=== PATIENT | male | born 1950 | race Caucasian/White ===

== ENCOUNTER → 2017-09-09 09:24 | Outpatient (CLI) | payer MEDICARE, BC | END | disposition home or self-care (01) | LOC: D.NM 09:24 | DX: R53.81 Other malaise (principal); R53.83 Other fatigue; C61 Malignant neoplasm of prostate ==

== ENCOUNTER → 2019-11-20 08:55 | Outpatient (CLI) | payer MEDICARE, BC ==
--- NOTE | 2019-11-23 08:54 | EC ---
PATIENT:JASPAL SANTOS DATE OF SERVICE: 11/20/19 SEX: M MEDICAL RECORD: [id number] DATE OF : [birth year] LOCATION:D[facility] AGE OF PATIENT: 69 ADMISSION DATE: 11/20/19 REFERRING PHYSICIAN: INTERPRETING PHYSICIAN: DESTINY BYRNE MD ECHOCARDIOGRAM REPORT ECHO CHARGES 4 ECHO COMPLETE Date: 11/20/19 CLINICAL DIAGNOSIS: HTN/HEART MURMUR ECHOCARDIOGRAPHIC MEASUREMENTS (adult normal given) AC root (d.<3.7cm) 3.3 cm LV Septum d (<1.2 cm> 1.7 cm Valve Excursion 1.2 cm LV Septum (systole) 1.9 cm Left Atria (s.<4.0cm> 4.0 cm LVPW d(<1.2cm) 1.7 cm RV (d.<2.3cm) 4.4 cm LVPW (sytole) 2.0 cm LV diastole(<5.6CM) 4.9 cm MV E-F(>70mm/sec) cm LV systole 3.6 cm LVOT Diameter 2.1 cm MV exc.(>10mm) 1.2 cm Est.ejection fraction (50-75%) % DOPPLER: LVIT cm/sec A 60.0 cm/sec E 76.0 cm/sec LA cm/sec RVSP 38 mmHg LVOT 113 cm/sec AOP1/2T m/s Asc. Ao 102 cm/sec RVOT 71 cm/sec RA cm/sec PA 110 cm/sec AV Gradient Peak 4.16 mmHg AV Mean 2.21 mmHg AV Area 3.9 cm MV Gradient Peak 4.31 mmHg MV Mean 1.44 mmHg MV Area cm COMMENTS: Spool Salvager: 2 EMEKA HAN Evening Or Night Nurse Supervisor: 3 Dr. Pérez TAPE# PACS Pericardial Effusion Y DATE OF SERVICE: Adequate 2D, color flow imaging, spectral Doppler, and M-mode. LVH is present. LV internal dimension is normal. Wall motion is normal. EF is greater than or equal to 55%. Aortic valve is tricuspid. No evidence of stenosis by Doppler interrogation. Left atrium is normal at 4 cm. Mitral valve shows no prolapse. Mild MR. Right-sided chambers are grossly normal. Mild TR. NTS:[id number] Voice Confirmation ID: [id number] DOCUMENT ID: [id number] ECHOCARDIOGRAM REPORT [id number] JASPAL SANTOS GREGORY A MD at 0854 CC: [id number] DICTATION DATE: 11/20/19 1330 LEATHER BELT SHAPER: 11/20/19 1858 DEP CLI 11/20/19 [place] [id number] [place] [id number]
== END | disposition home or self-care (01) ==
LOC: D.HCCECHO 08:55
PROVIDERS: ATTEND Internal Medicine Cardiovascular Disease
DX: I10 Essential (primary) hypertension (principal); I20.9 Angina pectoris, unspecified

== ENCOUNTER 2019-12-02 07:07 | Outpatient (CLI) | payer MEDICARE, BC ==
[~2019-12-02] VITALS: Ht 180.3 cm; Wt 124.1 kg
--- NOTE | ~2019-12-02 | HEMODYNAMI ---
PATIENT:JASPAL SANTOS MEDICAL RECORD: [id number] : 48 LOCATION:[facility] ADMISSION DATE: 12/02/19 Generatedon:12/02/20199:25 Patient name: JASPAL SANTOS Patient #: [id number] SSN: [id number] : 1950 Date of study: 12/02/2019 Page: Of Hemodynamic Procedure Report Patient Data Patient Demographics Procedure consent was obtained First Name: JASPAL Gender: Male Last Name: DANIELLE : 1950 Middle Initial: S Age: 69 year(s) Patient #: [id number] Race: SSN: [id number] Additional ID: [id number] Contact details Address: [address] [place] [address] State: [place] [facility] [place]: [address] Past Medical History Allergies Allergen Reaction Date Comments Reported Other allergy 12/02/2019 [facility] Admission Admission Data Admission Date: 12/02/2019 Admission Time: 7:07 Arrival Date: 12/02/2019 Arrival Time: 0:00 Insurance Payor: Medicare Height (in.): 70.87 BSA: 2.41 (m2) Height (cm.): 180 BMI: 38.27 (kg/m2) Weight (lbs.): 273.37 Weight (kg.): 124 Lab Results Lab Result Date: 12/02/2019 Lab Result Time: 0:00 Biochemistry Name Units Result Min Max BUN mg/dl 16 --(---*)-- 7 18 Creatinine mg/dl 1.3 --(---*)-- 0.6 1.3 eGFR ml/min 58 *-(----)-- 90 120 NONAFRICAN CBC Name Units Result Min Max Hematocrit % 38.4 *-(----)-- 42 54 Hemoglobin g/dl 12.8 -*(----)-- 13.5 17.5 Procedure Procedure Types Cath Procedure Diagnostic Procedure LHC [facility] w/Coronaries Sedation Charges Moderate Sedation up to 15 minutes PCI Procedure Coronary Stent Coronary Stent Initial Hemochron ACT Test Procedure Description Procedure Date Procedure Date: 12/02/2019 Procedure Start Time: 9:01 Procedure End Time: 9:23 Procedure Staff Name Function Erik Lorenzo MD Performing Physician Neeta Dent RT Monitor Solange Hanson RN Nurse Kyra Diaz RT Scrub Indication Angina Procedure Data Cath Procedure Fluoroscopy Diagnostic fluoroscopy Total fluoroscopy Time: 4 time: 4 min min Diagnostic fluoroscopy Total fluoroscopy dose: dose: 1466 mGy 1466 mGy Contrast Material Contrast Material Type Amount (ml) Isovue 300 115 Entry Location Entry Primary Successful Side Size Upsize Upsize Entry Closure Succes sful Closure Location (Fr) 1 (Fr) 2 (Fr) Remarks Device Remarks Femoral Right 5 Fr 6 Fr Exoseal artery Short Estimated blood loss: 10 ml Diagnostic catheters Device Type Used For End Catheter Placement MULTIPACK JL 4.0 5Fr Left Coronary catheter Angiography DIAGNOSTIC 5FR Infinity Right Coronary RBL-TG ([id number]) NO COST Angiography SUPPLY MULTIPACK Pigtail 5 Fr LV Angiography catheter Procedure Complications No complications Procedure Medications Medication Administration Route Dosage 0.9% NaCl I.V. 100 ml/hr Oxygen etCO2 Nasal cannula 2 l/min Lidocaine 2% added to field 20 Heparin Flush Bag added to field 2 bags (1000units/500ml NS) Versed I.V. 2 mg Fentanyl I.V. 50 mcg Heparin Bolus I.V. 5000 units Integrilin (Bolus I.V. 11.3 ml 2mg/ml) Integrilin (Bolus wasted 8.7 ml 2mg/ml) Plavix P.O. 600 mg Hemodynamics Rest BSA: 2.41 (m2) O2 Consumption: Estimated: 265.23 (ml/min) O2 Consumption indexed : Estimated:110.05 (ml/min/m) Heart Rate: 55 (bpm) Pressure Samples Time Site Value (mmHg) Purpose Heart Use Rate(bpm) 9:05 LV 113/12,18 Snapshot 49 Gradients Valve Time Site Site Mean SEP/DFP Peak To Heart Use 1 2 (mmHg) (sec/min) Peak Rate (mmHg) (bpm) Aortic 9:06 LV AO 57 Snapshots Pre Cath Intra NCS Post Cath Vital Signs Time Heart Resp SPO2 etCO2 NIBP (mmHg) Rhythm Pain Sedation Rate (ipm) (%) (mmHg) Status Level (bpm) 8:47:20 58 18 97 0 126/76(97) SB 0 (11) 10(A) , No pain 8:51:48 52 24 98 32.9 137/78(117) SB 0 (11) 10(A) , No pain 8:56:13 44 19 98 36.7 119/68(93) SB 0 (11) 10(A) , No pain 9:00:39 40 18 97 36.7 112/67(91) SB 0 (11) 10(A) , No pain 9:05:01 57 18 98 36.7 119/67(96) SB 0 (11) 9(A) , No pain 9:09:25 52 18 97 37.4 125/73(102) SB 0 (11) 9(A) , No pain 9:13:52 66 16 97 36.7 121/67(96) SB 0 (11) 10(A) , No pain 9:18:14 67 15 98 35.2 130/86(115) SB 0 (11) 10(A) , No pain 9:22:36 59 17 99 32.2 125/82(106) SB 0 (11) 10(A) , No pain Medications Time Medication Route Dose Verified Delivered Reason Notes Effectiveness by by 8:45:25 0.9% NaCl I.V. 100 Erik Solange used for ml/hr [facility] Valentin procedure MD ADDISON 8:45:32 Oxygen etCO2 2 Erik Solange used for Nasal l/min [facility] procedure cannula MD ADDISON 8:45:36 Lidocaine 2% added 20ml Erik Valencia for local to vial [facility] anesthetic field MD MCCLENDON 8:45:42 Heparin Flush added 2 Erik Erik used for Bag to bags [facility] procedure (1000units/500ml field MD MCCLENDON NS) 8:59:47 Versed I.V. 2 mg Erik Solange for sedation [facility] Hanson MD, RN 8:59:59 Fentanyl I.V. 50 Erik Solange for sedation mcg [facility] Hanson MD, RN 9:10:30 Heparin Bolus I.V. 5000 Erik Solange for verifi ed units [facility] anticoagulation with Dr. MD ADDISON [place] 9:10:43 Integrilin I.V. 11.3 Erik Solange for (Bolus 2mg/ml) ml [facility] Hanson antiplatelet RN therapy 9:10:54 Integrilin wasted 8.7 Erik Narvaez for (Bolus 2mg/ml) ml [facility] Hanson antiplatelet RN therapy 9:11:02 Plavix P.O. 600 Erik Narvaez for mg [facility] Hanson antiplatelet RN therapy Procedure Log Time Note 8:36:09 Informed consent obtained and on chart 8:37:36 Indication : Angina 8:37:44 Procedure Status Elective Heart Cath (OP). 8:37:47 Kyra Diaz RT(R) sent for patient. Start room use. 8:37:49 Time tracking: Regular hours (M-F 7:00 - 5:00) 8:37:57 Plan of Care:Hemodynamics will remain stable., Cardiac rhythm will remain stable., Comfort level will be maintained., Respiratory function will remain adequate., Patient/ family verbilizes understanding of procedure., Procedure tolerated without complication., Recovers from procedure without complications.. 8:38:07 ACC Patient presents with Stable Angina CCS Anginal Class 1--Ordinary physical activity does not cause angina, angina occurs with strenuos, rapid, or prolonged activity.. 8:38:34 Patient allergic to Other allergyNKDA 8:38:49 Arrival Date: 12/02/2019 12:00:00 AM 8:38:55 Patient Height : 70.87 inches 8:39:00 Patient Weight : 273.37 lbs 8:39:07 Insurance Payor : Medicare 8:40:46 Lab Result : BUN 16 mg/dl 8:40:46 Lab Result : Creatinine 1.3 mg/dl 8:40:46 Lab Result : eGFR NONAFRICAN 58 ml/min 8:40:46 Lab Result : Hematocrit 38.4 % 8:40:46 Lab Result : Hemoglobin 12.8 g/dl 8:41:01 Patient received from Pre/Post Procedure Room to CCL 1 Alert and oriented. Tansferred to table in Supine position. 8:41:03 Warm blankets applied, and blossom hugger turned on for patient comfort. 8:41:04 Correct patient and procedure confirmed by team. 8:41:04 ECG and BP/O2 sat monitors applied to patient. 8:45:25 0.9% NaCl 100 ml/hr I.V. was administered by Solange Hanson RN; used for procedure; Verbal order read back and verified. 8:45:32 Oxygen 2 l/min etCO2 Nasal cannula was administered by Solange Hanson RN; used for procedure; Verbal order read back and verified. 8:45:36 Lidocaine 2% 20ml vial added to field was administered by Erik Lorenzo MD; for local anesthetic; Verbal order read back and verified. 8:45:42 Heparin Flush Bag (1000units/500ml NS) 2 bags added to field was administered by Erik Lorenzo MD; used for procedure; Verbal order read back and verified. 8:46:01 Vital chart was started 8:46:36 Baseline sample Acquired. 8:46:58 Baseline sample Acquired. 8:47:11 Baseline sample Acquired. 8:50:11 Stress Test: yes; abnormal INFERIOR AND APICAL 8:50:19 Lab results completed and on chart. 8:51:09 Baseline sample Acquired. 8:51:13 Rhythm: sinus rhythm 8:51:16 Full Disclosure recording started 8:51:18 8:51:26 H&P Date Dictated: 12/02/2019 H&P Addendum completed by physician on day of procedure. (MUST COMPLETE FOR ALL OUTPATIENTS), New H&P dictated by physician.. 8:51:28 Pre-procedure instructions explained to patient. 8:51:29 Pre-op teaching completed and patient verbalized understanding. 8:51:32 Family in patients room. 8:51:35 Patient NPO since Midnight. 8:51:39 Is the patient allergic to Iodine/contrast media? No. 8:51:45 Is patient on blood thinner?No 8:51:49 Patient diabetic? No. 8:51:52 ----Pre-sedation anethsthesia assessment.---- 8:51:55 Previous problem with sedation/anesthesia? No ? 8:51:57 Snore? Yes 8:51:59 Sleep apnea? No 8:52:01 Deviated septum? No 8:57:51 Opens mouth fully? Yes 8:57:54 Sticks out tongue? Yes 8:57:59 Airway obstruction? No ? 8:58:02 Dentures? No ? 8:58:08 Pre procedure: right dorsailis pedis pulse 2+ Normal; easily identifiable; not easily obliterated 8:58:23 IV patent on arrival in right forearm with 0.9% NaCl at KVO. 8:58:35 Right groin area was prepped with chlora-prep and draped in sterile fashion 8:58:36 Alarms reviewed by R. N. 8:58:37 Sharps counted by scrub and verified by R.N. 8:58:41 Physician arrived 8:58:42 --------ALL STOP TIME OUT------ 8:58:44 Final Timeout: patient, procedure, and site verified with staff and physician. All members of the team are in agreement. 8:58:46 Right groin site verified by team. 8:58:53 Fire Safety Assessment: A--An alcohol-based skin anteseptic being used preoperatively., C--Open oxygen or nitrous oxide is being used., D--An ESU, laser, or fiber-optic light is being used. 8:58:58 Physical assessment completed. ASA score P 2 - A patient with mild systemic disease as per Erik Lorenzo MD. 8:59:05 3a) 45-59 Moderately reduced kidney function. 8:59:13 Maximum allowable contrast dose (3.7 X eGFR X 0.75)161 ml. 8:59:19 Sedation plan: IV Moderate Sedation Medication:Versed, Fentanyl 8:59:24 Use device set Femoral Dx 8:59:26 ACIST Syringe (98312) opened to sterile field. 8:59:27 Bag Decanter () opened to sterile field. 8:59:28 Medline Cath Pack ([id number]) opened to sterile field. 8:59:29 ACIST Hand Control (69028) opened to sterile field. 8:59:30 ACIST Manifold (42140) opened to sterile field. 8:59:31 DIAGNOSTIC Multipack 5Fr catheter set (FE8319) opened to sterile field. 8:59:32 Tegaderm 4 x 4 (1626W) opened to sterile field. 8:59:33 SHEATH 5FR [place] (GNE930) opened to sterile field. 8:59:34 EMERALD Guide Wire (502-790) opened to sterile field. 8:59:47 Versed 2 mg I.V. was administered by Solange Hanson RN; for sedation; Verbal order read back and verified. 8:59:59 Fentanyl 50 mcg I.V. was administered by Solange Hanson RN; for sedation; Verbal order read back and verified. 9:00:00 Zero performed for pressure channel P1 9:00:39 Procedure started. 9:01:11 Local anesthetic to right femoral artery with Lidocaine 2% by Erik Lorenzo MD.INITIAL ACCESS ONLY 9:02:29 A 5 Fr sheath was inserted into the Right Femoral artery 9:02:38 A MULTIPACK JL 4.0 5Fr catheter was advanced over the wire and used for Left Coronary Angiography. 9:02:41 LCA angiography performed. 9:02:49 Injector settings: Ml/sec: 3, Volume: 6, 9:03:58 Catheter removed. 9:04:59 A DIAGNOSTIC 5FR Infinity RBL-TG ([id number]) NO COST SUPPLY was advanced over the wire and used for Right Coronary Angiography. 9:05:09 Injector settings: Ml/sec: 3, Volume: 6, 9:05:19 RCA angiography performed. 9:05:31 Catheter removed. 9:05:38 A MULTIPACK Pigtail 5 Fr catheter was advanced over the wire and used for LV Angiography. 9:06:04 LV gram done using MOONEY 9:06:27 EF : 55 % 9:06:30 LV hemodynamics recorded. 9:06:36 Injector settings: Ml/sec: 3, Volume: 6, 9:06:38 Catheter removed. 9:07:20 INFLATOR Merit BasixCompak (ER0090) opened to sterile field. 9:07:23 WHISPER 300cm guide wire ([id number]) opened to sterile field. 9:07:24 SHEATH 6FR [place] (JUU742) opened to sterile field. 9:07:36 GUIDE 6FR HS I catheter (LA6HSI) opened to sterile field. 9:07:55 Proceeding to intervention. 9:08:09 Sheath upsized to a 6 Fr Short. 9:08:21 6 Fr HS1 guide catheter was inserted over the wire 9:09:01 Pre PCI Site: [place] PDA has 80% stenosis. 9:09:06 ACC Pre-intervention SAVANA Flow is 3. 9:10:30 Heparin Bolus 5000 units I.V. was administered by Solange Hanson RN; for anticoagulation; verified with Dr. Pérez Verbal order read back and verified. 9:10:36 Wire advanced across lesion. 9:10:43 Integrilin (Bolus 2mg/ml) 11.3 ml I.V. was administered by Solange Hanson RN; for antiplatelet therapy; Verbal order read back and verified. 9:10:54 Integrilin (Bolus 2mg/ml) 8.7 ml wasted was administered by Solange Hanson RN; for antiplatelet therapy; Verbal order read back and verified. 9:11:02 Plavix 600 mg P.O. was administered by Solange Hanson RN; for antiplatelet therapy; Verbal order read back and verified. 9:14:02 Place stent Inflation Number: 1 A KELLY RX 3.0 x 15 stent ([id number]) was prepped and advanced across the R PDA . The stent was deployed at 14 CORINA for 0:17 (min:sec) . 9:15:06 Inflation number: 2 The stent balloon was then re-inflated across the R PDA to 6 CORINA for 0:17 (min:sec) . 9:15:33 Stent catheter was removed intact over wire. 9:15:38 Wire removed. 9:15:39 Guide catheter removed. 9:15:49 EXOSEAL 6Fr (EX600) opened to sterile field. 9:16:02 ACC Post-intervention SAVANA Flow is 3. 9:16:13 Post PCI Site: [place] PDA has 0% stenosis. 9:16:27 Sheath removed intact; hemostasis achieved with Exoseal to the Right Femoral artery. 9:16:31 Procedure ended.(Physican Out) 9:16:39 Contrast amount:Isovue 300 115ml. 9:16:51 Maximum allowable dose exceeded? No. 9:17:00 Fluoroscopy time 04.00 minutes. 9:17:05 Fluoroscopy dose: 1466 mGy 9:17:05 Flurop Dose total: 1466 9:17:13 Dose Area Product 75100 mGy/cm. 9:17:17 Sharps counted by scrub and verified by R.NNegrito 9:19:01 ACT drawn and resulted at 228 seconds. (normal therapeutic range 180-240 seconds). 9:19:48 Risk of Mortality: 0.1 9:19:52 Risk of blood transfusion: .1 9:19:58 Risk of STUART: 1.1 9:20:10 Insertion/operative site no bleeding no hematoma. 9:20:15 Post-op/insertion site Right Femoral artery dressed using a 4 x 4 and Tegaderm. 9:20:21 Post-procedure physical assessment completed. ASA score P 2 - A patient with mild systemic disease as per Erik Lorenzo MD. 9:20:26 Post procedure rhythm: unchanged. 9:20:31 Estimated blood loss: 10 ml 9:20:33 Post procedure instruction explained to patient.Patient verbalizes understanding. 9:20:34 Patient needs reinforcement of post procedure teaching. 9:21:13 Procedure type changed to Cath procedure, Diagnostic procedure, LHC, C w/Coronaries, Sedation Charges, Moderate Sedation up to 15 minutes, PCI procedure, Coronary Stent, Coronary Stent Initial, Hemochron ACT Test 9:21:15 Procedure and supply charges have been captured, reviewed, submitted and are correct. 9:23:10 Procedure Complication : No complications 9:23:14 Vital chart was stopped 9:23:17 [facility] Findings: MVD- PCI performed (see procedure note) 9:23:19 Operative report dictated upon procedure completion. 9:23:20 See physician's report for complete and final results. 9:23:23 Report given to Pre/Post Procedure Room. 9:23:27 Patient transfered to Pre/Post Procedure Room with Stretcher. 9:23:32 Procedure ended. 9:23:32 Full Disclosure recording stopped 9:23:42 ACC-PCI Only Patient was given prescriptions, or instructed by Erik Lorenzo MD to start/continue the following medications upon discharge: Plavix 9:23:44 End room use (Document Last) Intervention Summary Intervention Notes Time ActionType Lesion and Equipment Used Action# Pressure Duration Attributes 9:14:02 Place stent R PDA KELLY RX 3.0 x 1 14 00:17 15 stent ([id number]) 9:15:06 Reinflate R PDA KELLY RX 3.0 x 2 6 00:17 stent 15 stent balloon ([id number]) Device Usage Item Name Manufacture Quantity Catalog Hospital Part [facility] Lot# / Number Charge Number Stock Stock Serial# Code ACIST Syringe Acist 1 [id number] [id number] 391475 550371 20 (55382) Medical Systems Inc Bag Decanter Microtek 1 2001S 957350 86038 581320 5 () Medical Inc. Medline Cath Medline 1 [id number] 945456 06368 735341 5 Pack ([id number]) ACIST Hand Acist 1 58185 751154 262262 719544 5 Control Medical (97912) Systems Inc ACIST Manifold Acist 1 69695 887729 731220 197517 5 (10722) Medical Systems Inc DIAGNOSTIC Cardinal 1 [id number] 035370 92215 337570 30 Multipack 5Fr Health catheter set (KL8510) Tegaderm 4 x 4 3M 1 1626W 805696 287136 031333 5 (1626W) SHEATH 5FR Terumo 1 NRT706 119059 581662 587731 5 [place] (MCG307) EMERALD Guide Cardinal 1 502-455 032935 442803 030954 5 Wire (502-455) Yeelion MULTIPACK JL Cardinal 1 543074 5 4.0 5Fr Health catheter DIAGNOSTIC 5FR Cardinal 1 [id number] 767633 884112 5 Petsy RBL-TG (188357I9) NO COST SUPPLY MULTIPACK Cardinal 1 294609 5 Pigtail 5 Fr Health catheter INFLATOR Merit Merit 1 [id number] 176772 018139 779411 15 [facility] Medical (FJ8443) WHISPER 300cm South 1 [id number] 979851 708190 473959 5 guide wire Vascular ([id number]) SHEATH 6FR Terumo 1 XLX630 959003 336033 164427 40 [place] (ACT156) GUIDE 6FR HS I Medtronic 1 LA6HSI 645890 43781 406673 1 catheter (LA6HSI) KELLY RX 3.0 x Medtronic 1 [id number] 437676 5775223 496426 5 [id number] 15 stent ([id number]) EXOSEAL 6Fr Cardinal 1 EX600 188342 061412 270432 10 (EX600) Health Signature Audit [place] Stage Time Signature Unsigned Intra-Procedure 12/02/2019 Neeta 9:24:03 AM Jailene RT(R) (CV) Intra-Procedure 12/02/2019 Solange Hanson 9:24:42 AM RN Intra-Procedure 12/02/2019 Erik Curry 9:25:12 AM José Antonio MCCLENDON [facility] [address] [place] [address]
[2019-12-02] MEDS ORDERED: LISINOPRIL10 MG PO (07:28)
[2019-12-02] MEDS ORDERED: CRESTOR20 MG PO (07:28)
[2019-12-02] MEDS ORDERED: BICALUTAMIDE (07:31)
[2019-12-02] MEDS ORDERED: [UNRECOGNIZED DRUG - OTHER] (07:32)
[2019-12-02] MEDS ORDERED: BAYER CHEWABLE81 MG PO (07:33)
[2019-12-02 08:02] VITALS: BP 147/75; Ht 180.3 cm; Wt 124.1 kg
[2019-12-02 08:22] LABS: BASOPHILS 1.1 % (0-2); EOSINOPHILS 4.6 % (0-7); HEMATOCRIT 38.4 % (42.0-54.0); HEMOGLOBIN 12.8 g/dL (13.5-17.5); IMMATURE GRANULOCYTES 0.3 % (0-5); LYMPHOCYTES 18.6 % (15-50); MCH 31.9 pg (26.0-34.0); MCHC 33.3 g/dL (31.0-37.0); MCV 95.8 fL (80.0-100.0); MEAN PLATELET VOLUME 11.2 fL (7.4-10.4); MONOCYTES 4.9 % (2-11); NEUTROPHILS 70.5 % (40-80); PLATELET COUNT 220 10x3/uL (130-400); RBC 4.01 10x6/uL (4.20-6.10); RDW 13.6 % (11.5-14.5); WBC 6.5 10x3/uL (4.8-10.8)
[2019-12-02 08:28] LABS: ANION GAP 11.8 mmol/L (8-16); CALCIUM 8.7 mg/dL (8.5-10.1); CARBON DIOXIDE 25.4 mmol/L (21.0-32.0); CHOL - HDL RATIO 2.9 ratio (2.3-4.9); CREATININE - SERUM 1.3 mg/dL (0.6-1.3); LDL-HDL RATIO 1.5 ratio (1.5-3.5); POTASSIUM - SERUM 4.2 mmol/L (3.5-5.1)
--- NOTE | 2019-12-02 09:30 | NUR ---
PT RECEIVED VIA STRETCHER FROM COLOR GRINDER FOR RECOVERY. PT AWAKE BUT DROWSY, DENIES PAIN OR DISCOMFORT. IV PATENT INFUSING VIA ORDERS TO R ARM. 6FR EXOCELE TO R GROIN, DRESSING CDI NO S/S HEMATOMA OR BLEEDING. LEG PINK AND WARM, PEDAL PULSES PALPABLE. PT INSTRUCTED TO KEEP HEAD ON PILLOW AND LEG STRAIGHT, HE VERBALIZED UNDERSTANDING. PT PLACED ON CARDIAC MONITORS AND O2 AT 2L/NC. HR NSR RATE 63 BP 154/80, RR 18, SAT 98. CALL LIGHT IN REACH, AT BEDSIDE.
[2019-12-02] MEDS ORDERED: PLAVIX75 MG PO (09:32)
--- NOTE | 2019-12-02 10:00 | NUR ---
PT A LITTLE RESTLESS DUE TO BACK DISCOMFORT. SMALL BEND PUT UNDER KNEE'S FOR COMFORT. VSS AT PRESENT. R GROIN SOFT, DRESSING REMAINS CDI NO S/S HEMATOMA. LEG PINK AND WARM, PEDAL PULSES PALPALBE. PT TOLERATING PO FLUIDS. CALL LIGHT IN REACH, AT BS
--- NOTE | 2019-12-02 10:46 | NUR ---
PT RESTING COMFORTABLY, DENIES PAIN OR NEEDS AT THIS TIME. R GROIN SOFT, DRESSING CDI NO S/S HEMATOMA OR BLEEDING. CALL LIGHT IN REACH, AT BS. VSS AT PRESENT.
--- NOTE | 2019-12-02 11:15 | NUR ---
PT RESTING W/O COMPLAINTS. R GROIN SOFT, DRESSING REMAINS CDI NO S/S HEMATOMA OR BLEEDING NOTED. VSS. CALL LIGHT IN REACH
--- NOTE | 2019-12-02 11:48 | NUR ---
NO CHANGE IN CONDITION. R GROIN SOFT, DRESSING REMAINS CDI NO S/S HEMATOMA OR BLEEDING. VSS AT PRESENT. CALL LIGHT IN REACH
--- NOTE | 2019-12-02 12:17 | NUR ---
GROIN REMAINS SOFT, NO S/S HEMATOMA. HOB ELEVATED SLIGHTLY FOR COMFORT. PT DENIES PAIN OR NEEDS AT THIS TIME. CALL LIGHT IN REACH, REMAINS AT BS
--- NOTE | 2019-12-02 12:45 | NUR ---
PT SITTING UP, PT LAST BP MARKABLE LOWER 74/38 RE ADJUSTED CUFF AND RE TOOK 93/58. IVF OPENED UP NEW BAG HUNG, HOB LOWERED. PT DENIES PAIN OR NAUSEA, STATES FEELS SWEATY. 1255 BP IMPROVED 101/62. WILL MONITOR. PT STATES FEELS BETTER. GROIN REMAINS SOFT, NO S/S HEMATOMA OR BLEEDING NOTED. COOL WASH CLOTH TO FORHEAD.
--- NOTE | 2019-12-02 13:06 | NUR ---
PT'S BP IMPROVED, HE DENIES PAIN, NAUSEA OR FEELING SWEATY. BP 115/68.
--- NOTE | 2019-12-02 13:20 | NUR ---
IV REMOVED W CATH INTACT, VSS. NEW DRESSING APPLIED TO GROIN, NO BLEEDING OR S/S HEMATOMA NOTED. MONITORS REMOVED AND PT UP TO DRESS FOR DISCHARGE. 1330 PT VOIDED W/O DIFFICULITY VIA URINAL.
--- NOTE | 2019-12-02 13:20 | NUR ---
BP 108/54, PT DENIES ANY SYMPTOMS. HOB ELEVATED MORE. GROIN REMAINS SOFT, NO S/S HEMATOMA OR BLEEDING. DISCHARGE INSTRUCTIONS REVIEWED W PT AND , DISCUSSED THE IMPORTANCE OF THE PLAVIX AND STARTING IT TOMORROW, THEY VERBALIZED UNDERSTANDING.
--- NOTE | 2019-12-02 13:40 | NUR ---
DISCUSSED W PT AND THE PRE PROCEDURE INSTRUCTIONS FOR HIS APPT 12/09/19, ALSO ADVISED ABOUT TAKING MORNING MEDICATIONS BEFORE COMING INCLUDING THE PLAVIX. THEY BOTH VERBALIZED UNDERSTANDING. PT DISCHARGED VIA WC TO WAITING IN PRIVATE VEHICLE. PT HAS ALL BELONGINGS AND DISCHARGE PAPERWORK.
--- NOTE | 2019-12-03 15:26 | OP ---
PATIENT NAME: JASPAL SANTOS MEDICAL RECORD: [id number] :48 LOCATION:D.[facility] ADMISSION DATE: SURGEON: DESTINY BYRNE MD DATE OF OPERATION: 12/02/2019 PROCEDURE: Left heart catheterization, selective coronary angiography, right femoral artery approach. CATHETERS: A 5-Lebanese sheath, 5/4 left and right Nae, 5/4 pig. The procedure was well tolerated. The patient was returned to the redman, sheath removed. ExoSeal device placed. FINDINGS: Left ventriculography in 30-degree MOONEY view; normal wall motion and normal systolic function. CORONARY ANATOMY: LEFT MAIN: Left main is free of disease. LAD: LAD is free of disease in the diagonal system. CIRCUMFLEX: Has moderate size OM, has about 80% stenosis. RIGHT CORONARY ARTERY: The right coronary artery is a dominant artery, gives rise to PDA. The PDA itself has an 80% stenosis in its proximal portion. IMPRESSION: Two-vessel disease, correlating well with nuclear study. PLAN: Intervention momentarily. DESCRIPTION OF PROCEDURE: A 5-Lebanese sheath was exchanged for a 6-Lebanese sheath. A 300 cm Whisper wire was placed across the tightly occluded PDA down this portion of vessel. Stent deployed was a 3.0 x 15 mm [place] drug-eluting stent up to 14 atmospheres. Final angiography shows excellent resolution 80% stenosis, no significant residual. SAVANA flow was 3 throughout the procedure. Heparin and Integrilin were used during the case. Plavix was loaded in the lab. Sheath closed with ExoSeal device. TRANSINT:[id number] Voice Confirmation ID: [id number] DOCUMENT ID: [id number] DESTINY BYRNE MD at 1526 CC: [id number] DICTATION DATE: 12/02/19 0923 MULTIMEDIA ENGINEER: 12/02/19 1237 DEP CLI 12/02/19 [place] [id number] [place] [address]
== END 2019-12-02 13:40 | disposition home or self-care (01) ==
LOC: D.CATH 07:07
PROVIDERS: ATTEND Internal Medicine Interventional Cardiology
DX: I25.119 Atherosclerotic heart disease of native coronary artery with unspecified angina pectoris (principal); E78.5 Hyperlipidemia, unspecified; I10 Essential (primary) hypertension; R94.31 Abnormal electrocardiogram [ECG] [EKG]; R01.1 Cardiac murmur, unspecified
CPT/HCPCS: 93458; C9600

== ENCOUNTER 2019-12-09 07:03 | Day surgery (SDC) | payer MEDICARE, BC ==
[~2019-12-09] VITALS: Ht 180.3 cm; Wt 124.2 kg
--- NOTE | ~2019-12-09 | HEMODYNAMI ---
PATIENT:JASPAL SANTOS MEDICAL RECORD: [id number] : 48 LOCATION:[facility] ADMISSION DATE: 12/09/19 Generatedon:12/09/201910:08 Patient name: JASPAL SANTOS Patient #: [id number] SSN: [id number] : 1950 Date of study: 12/09/2019 Page: Of Hemodynamic Procedure Report Patient Data Patient Demographics Procedure consent was obtained First Name: JASPAL Gender: Male Last Name: DANIELLE : 1950 Middle Initial: S Age: 69 year(s) Patient #: [id number] Race: SSN: [id number] Additional ID: [id number] Contact details Address: [address] [place] [address] State: [place] City: [facility] Zip code: [address] Past Medical History Allergies Allergen Reaction Date Comments Reported Other allergy 12/02/2019 [facility] Admission Admission Data Admission Date: 12/09/2019 Admission Time: 7:03 Arrival Date: 12/09/2019 Arrival Time: 9:00 Admit Source: Other Insurance Payor: Medicare [facility] #: [id number] Height (in.): 70.87 BSA: 2.41 (m2) Height (cm.): 180 BMI: 38.27 (kg/m2) Weight (lbs.): 273.37 Weight (kg.): 124 Lab Results Lab Result Date: 12/09/2019 Lab Result Time: 0:00 Biochemistry Name Units Result Min Max BUN mg/dl 20 --(----)*- 7 18 Creatinine mg/dl 1.4 --(----)*- 0.6 1.3 eGFR ml/min 53 *-(----)-- 90 120 NONAFRICAN CBC Name Units Result Min Max Hemoglobin g/dl 12.6 -*(----)-- 13.5 17.5 Procedure Procedure Types Cath Procedure Diagnostic Procedure Sedation Charges Moderate Sedation up to 15 minutes PCI Procedure Coronary Stent Coronary Stent Initial Hemochron ACT Test Procedure Description Procedure Date Procedure Date: 12/09/2019 Procedure Start Time: 9:43 Procedure End Time: 9:58 Procedure Staff Name Function Isabella Vargas RT Monitor Erik Lorenzo MD Performing Physician Kyra Diaz RT Scrub Solange Hanson RN Nurse Procedure Data Cath Procedure Fluoroscopy Diagnostic fluoroscopy Total fluoroscopy Time: 1.7 time: 1.7 min min Diagnostic fluoroscopy Total fluoroscopy dose: 577 dose: 577 mGy mGy Contrast Material Contrast Material Type Amount (ml) Isovue 300 74 Entry Location Entry Primary Successful Side Size Upsize Upsize Entry Closure Succes sful Closure Location (Fr) 1 (Fr) 2 (Fr) Remarks Device Remarks Femoral Left 6 Fr Exoseal artery Short Estimated blood loss: 5 ml Procedure Complications No complications Procedure Medications Medication Administration Route Dosage 0.9% NaCl I.V. 100 ml/hr Oxygen etCO2 Nasal cannula 2 l/min Lidocaine 2% added to field 20 Heparin Flush Bag added to field 2 bags (1000units/500ml NS) Versed I.V. 2 mg Fentanyl I.V. 50 mcg Fentanyl I.V. 50 mcg Heparin Bolus I.V. 5000 units Hemodynamics Rest BSA: 2.41 (m2) HGB: 12.6 (g/dl) O2 Consumption: Estimated: 280.4 (ml/min) O2 Con sumption indexed: Estimated:116.35 (ml/min/m) Heart Rate: 72 (bpm) Snapshots Pre Cath Intra NCS Post Cath Vital Signs Time Heart Resp SPO2 etCO2 NIBP (mmHg) Rhythm Pain Sedation Rate (ipm) (%) (mmHg) Status Level (bpm) 9:13:09 60 17 94 0 139/84(118) NSR 0 (11) 10(A) , No pain 9:17:25 64 16 94 21.8 136/89(105) NSR 0 (11) 10(A) , No pain 9:21:45 63 15 95 33.1 141/79(105) NSR 0 (11) 10(A) , No pain 9:26:03 64 15 95 40.6 137/82(100) NSR 0 (11) 10(A) , No pain 9:30:21 62 17 98 37.6 136/80(104) NSR 0 (11) 10(A) , No pain 9:34:37 63 18 98 33.1 146/89(129) NSR 0 (11) 10(A) , No pain 9:39:03 61 18 98 34.6 141/77(132) NSR 0 (11) 10(A) , No pain 9:44:02 61 20 99 33.9 Measuring NSR 0 (11) 9(A) , No pain 9:44:15 60 20 99 32.4 156/95(119) NSR 0 (11) 9(A) , No pain 9:48:30 63 17 98 39.1 148/90(112) NSR 0 (11) 9(A) , No pain 9:52:46 63 17 98 36.1 144/84(123) NSR 0 (11) 10(A) , No pain 9:57:05 59 17 99 35.3 154/85(132) NSR 0 (11) 10(A) , No pain Medications Time Medication Route Dose Verified Delivered Reason Notes Effectiveness by by 9:12:04 0.9% NaCl I.V. 100 Erik Solange used for ml/hr [facility] procedure MD ADDISON 9:12:11 Oxygen etCO2 2 Erik Solange used for Nasal l/min [facility] procedure cannula RN 9:12:16 Lidocaine 2% added 20ml Erik Valencia for local to vial [facility] anesthetic field MD MCCLENDON 9:12:21 Heparin Flush added 2 Erik Erik used for Bag to bags [facility] procedure (1000units/500ml field MD MCCLENDON NS) 9:35:44 Versed I.V. 2 mg Erik Solange for sedation [facility] MD RN 9:35:49 Fentanyl I.V. 50 Erik Solange for sedation mcg [facility] Hans[facility] MD RN 9:41:49 Fentanyl I.V. 50 Erik Solange for sedation mcg [facility] Hans[facility] MD RN 9:47:51 Heparin Bolus I.V. 5000 Erik Solange for verifi ed units [facility] Hanson anticoagulation with Dr. MCCLENDON RN [facility] Procedure Log Time Note 8:17:01 Diagnostic Cath Status : Elective 8:20:42 Informed consent obtained and on chart 8:23:33 Arrival Date: 12/09/2019 9:00:00 AM 8:24:21 Admit Source: Other 8:24:24 Insurance Payor : Medicare 8:34:09 Procedure Status Elective Heart Cath (OP). 9:00:03 Time tracking: Regular hours (M-F 7:00 - 5:00) 9:00:03 Kyra Diaz RT(R) sent for patient. Start room use. 9:00:08 Plan of Care:Hemodynamics will remain stable., Cardiac rhythm will remain stable., Comfort level will be maintained., Respiratory function will remain adequate., Patient/ family verbilizes understanding of procedure., Procedure tolerated without complication., Recovers from procedure without complications.. 9:11:56 Vital chart was started 9:12:04 0.9% NaCl 100 ml/hr I.V. was administered by Solange Hanson RN; used for procedure; Verbal order read back and verified. 9:12:05 Patient Height : 70.87 inches 9:12:09 Patient Weight : 273.37 lbs 9:12:11 Oxygen 2 l/min etCO2 Nasal cannula was administered by Solange Hanson RN; used for procedure; Verbal order read back and verified. 9:12:16 Lidocaine 2% 20ml vial added to field was administered by Erik Lorenzo MD; for local anesthetic; Verbal order read back and verified. 9:12:21 Heparin Flush Bag (1000units/500ml NS) 2 bags added to field was administered by Erik Lorenzo MD; used for procedure; Verbal order read back and verified. ::56 Lab Result : Hemoglobin 12.6 g/dl 9::56 Hemodynamic formulas in Rest were re-calculated based on hemoglobin value from 12/09/2019 12:00:00 AM :: Lab Result : eGFR NONAFRICAN 53 ml/min :: Lab Result : BUN 20 mg/dl ::56 Lab Result : Creatinine 1.4 mg/dl 9:13:07 Patient received from Pre/Post Procedure Room to CCL 2 Alert and oriented. Tansferred to table in Supine position. :13:08 Correct patient and procedure confirmed by team. 9:13:08 Warm blankets applied, and blossom hugger turned on for patient comfort. 9:13:09 ECG and BP/O2 sat monitors applied to patient. 9:13:10 Baseline sample Acquired. ::14 Rhythm: sinus rhythm 9:13:15 Full Disclosure recording started 9:13:20 H&P Date Dictated: 12/09/2019 Within 30 days and on chart., H&P Addendum completed by physician on day of procedure. (MUST COMPLETE FOR ALL OUTPATIENTS). 9:13:21 Pre-procedure instructions explained to patient. 9:13:22 Pre-op teaching completed and patient verbalized understanding. 9:13:24 Family in patients room. 9:13:25 Patient NPO since Midnight. 9:13:27 Is the patient allergic to Iodine/contrast media? No. 9:13:29 Was the patient premedicated? Yes 9:13:31 Is patient on blood thinner?Yes 9:13:41 ACC The patient was administered the following blood thiners within the last 24 hours: ACCPlavix 9:13:53 Patient diabetic? No. 9:13:58 Previous problem with sedation/anesthesia? No ? 9:14:02 Snore? Yes 9:14:04 Sleep apnea? No 9:14:07 Deviated septum? No 9:14:14 Opens mouth fully? Yes 9:14:15 Sticks out tongue? Yes 9:14:16 Airway obstruction? No ? 9:14:21 Dentures? Yes in tight 9:14:29 Pre procedure: right dorsailis pedis pulse 2+ Normal; easily identifiable; not easily obliterated 9:14:31 Pre procedure: left dorsailis pedis pulse 2+ Normal; easily identifiable; not easily obliterated 9:14:33 Patient pain scale 0/10 ?. 9:14:44 IV patent on arrival in left forearm with 0.9% NaCl at O. 9:14:46 Lab results completed and on chart. 9:18:29 SCAI program not responding 9:18:34 Left groin area was prepped with chlora-prep and draped in sterile fashion 9:18:35 Sharps counted by scrub and verified by R.N. 9:18:35 Alarms reviewed by R. N. 9:34:05 Physician arrived 9:34:06 Final Timeout: patient, procedure, and site verified with staff and physician. All members of the team are in agreement. 9:34:06 --------ALL STOP TIME OUT------ 9:34:08 Left groin site verified by team. 9:34:12 Fire Safety Assessment: A--An alcohol-based skin anteseptic being used preoperatively., C--Open oxygen or nitrous oxide is being used., D--An ESU, laser, or fiber-optic light is being used. 9:34:15 Physical assessment completed. ASA score P 2 - A patient with mild systemic disease as per Erik Lorenzo MD. 9:34:19 3a) 45-59 Moderately reduced kidney function. 9:35:44 Versed 2 mg I.V. was administered by Solange Hanson RN; for sedation; Verbal order read back and verified. 9:35:49 Fentanyl 50 mcg I.V. was administered by Solange Hanson RN; for sedation; Verbal order read back and verified. 9:37:25 Maximum allowable contrast dose (3.7 X eGFR X 0.75)147 ml. 9:37:28 Sedation plan: IV Moderate Sedation Medication:Versed, Fentanyl 9:37:36 Use device set CATH PACK 9:37:37 ACIST Syringe (94798) opened to sterile field. 9:37:38 ACIST Manifold (48162) opened to sterile field. 9:37:38 ACIST Hand Control (71789) opened to sterile field. 9:37:39 TIARAALD Guide Wire (502-036) opened to sterile field. 9:37:39 Bag Decanter (2002S) opened to sterile field. 9:37:39 Medline Cath Pack ([id number]) opened to sterile field. 9:38:19 SHEATH 6FR [place] (WBS299) opened to sterile field. 9:38:20 INFLATOR Merit BasixCompak (CY9434) opened to sterile field. 9:38:22 GUIDE 6FR XBLAD 3.5 catheter ([id number]) opened to sterile field. 9:38:28 WHISPER 300cm guide wire ([id number]) opened to sterile field. 9:38:34 Procedure started. 9:41:49 Fentanyl 50 mcg I.V. was administered by Solange Hanson RN; for sedation; Verbal order read back and verified. 9:43:13 Local anesthetic to left femerol artery with Lidocaine 2% by Erik Lorenzo MD.INITIAL ACCESS ONLY 9:43:28 A 6 Fr Short sheath was inserted into the Left Femoral artery 9:45:20 6 Fr xblad 3.5 guide catheter was inserted over the wire 9:45:39 ACC Pre-intervention SAVANA Flow is 3. 9:45:49 Pre PCI Site: [place] pCirc has 80% stenosis. 9:45:56 whisper wire advanced. 9:47:51 Heparin Bolus 5000 units I.V. was administered by Solange Hanson RN; for anticoagulation; verified with Dr. Pérez Verbal order read back and verified. 9:54:54 Place stent Inflation Number: 1 A KELLY OTW 3.5 x 12 stent ([id number]) was prepped and advanced across the Prox CX 80. The stent was deployed at 14 CORINA for 0:30 (min:sec) 0. 9:55:44 Stent catheter was removed intact over wire. 9:55:45 Guide catheter removed. 9:55:45 Wire removed. 9:55:53 EXOSEAL 6Fr (EX600) opened to sterile field. 9:56:01 ACC Post-intervention SAVANA Flow is 3. 9:56:08 Sheath removed intact; hemostasis achieved with Exoseal to the Left Femoral artery. 9:56:11 Procedure ended.(Physican Out) 9:56:25 Fluoroscopy time 01.70 minutes. 9:56:29 Fluoroscopy dose: 577 mGy 9:56:29 Flurop Dose total: 577 9:56:35 Dose Area Product 18384 mGy/cm. 9:56:49 Contrast amount:Isovue 300 74ml. 9:56:50 Maximum allowable dose exceeded? No. 9:56:51 Sharps counted by scrub and verified by R.N. 9:56:52 Insertion/operative site no bleeding no hematoma. 9:56:56 Post-op/insertion site Left Femoral artery dressed using a 4 x 4 and Tegaderm. 9:56:58 Post Procedure Pulses reassessed and unchanged 9:57:00 Post procedure rhythm: unchanged. 9:57:27 Estimated blood loss: 5 ml 9:57:29 Patient needs reinforcement of post procedure teaching. 9:57:29 Post procedure instruction explained to patient.Patient verbalizes understanding. 9:57:54 Procedure type changed to Cath procedure, Diagnostic procedure, Sedation Charges, Moderate Sedation up to 15 minutes, PCI procedure, Coronary Stent, Coronary Stent Initial, Hemochron ACT Test 9:57:55 Procedure and supply charges have been captured, reviewed, submitted and are correct. 9:58:00 Procedure Complication : No complications 9:58:02 Vital chart was stopped 9:58:06 [facility] Findings: MVD- PCI performed (see procedure note) 9:58:07 Operative report dictated upon procedure completion. 9:58:08 See physician's report for complete and final results. 9:58:10 Report given to Pre/Post Procedure Room. 9:58:13 Patient transfered to Pre/Post Procedure Room with Stretcher. 9:58:15 Full Disclosure recording stopped 9:58:15 Procedure ended. 9:58:26 ACC-PCI Only Patient was given prescriptions, or instructed by Erik Lorenzo MD to start/continue the following medications upon discharge: Plavix 9:58:35 ACT drawn and resulted at 170 seconds. (normal therapeutic range 180-240 seconds). 9:58:43 End room use (Document Last) 10:00:13 End room use (Document Last) 10:00:36 End room use (Document Last) Intervention Summary Intervention Notes Time ActionType Lesion and Equipment Action# Pressure Duration Attributes Used 9:54:54 Place stent Prox CX KELLY OTW 3.5 1 14 00:30 x 12 stent ([id number]) Device Usage Item Name Manufacture Quantity Catalog Hospital Part Current Mini mal Lot# / Number Charge Number Stock Stock Serial# Code ACIST Syringe Acist 1 69729 [id number] 392971 387648 20 (77677) Medical Systems Inc ACIST Hand Acist 1 71052 765850 882790 389599 5 Control Medical (48088) Systems Inc ACIST Acist 1 97925 301268 502370 741770 5 Manifold Medical (44515) Systems Inc Medline Cath Medline 1 [id number] 180269 95732 484368 5 Pack ([id number]) Bag Decanter Microtek 1 369883 91308 426651 5 () Medical Inc. EMERALD Guide Cardinal 1 387-692 483274 742245 775204 5 GigaPan [facility] (103-698) SHEATH 6FR Terumo 1 NUV206 484814 471820 382233 40 [place] (OUY939) INFLATOR Merit 1 KC9422 842454 660922 240440 15 [facility] Medical BasixCompak (IQ6113) GUIDE 6FR Cardinal 1 [id number] 097048 004066 240135 10 XBLAD 3.5 Health catheter (15395444) WHISPER 300cm South 1 [id number] 035918 498747 811822 5 guide wire Vascular (3010055WP) KELLY OTW 3.5 Medtronic 1 [id number] 915322 0139339 769717 5 [id number] x 12 stent ([id number]) EXOSEAL 6Fr Cardinal 1 EX600 994719 541957 648787 10 (EX600) Health Signature Audit [place] Stage Time Signature Unsigned Intra-Procedure 12/09/2019 Isabella Vargas 10:00:13 AM RT(R) Intra-Procedure 12/09/2019 Solange Hanson 10:00:36 AM RN Intra-Procedure 12/09/2019 Erik Lorenzo MD 10:02:29 AM José Antonio MCCLENDON 12/09/2019 10:04:05 AM Intra-Procedure 12/09/2019 Erik Lorenzo MD 10:05:04 AM José Antonio MCCLENDON 12/09/2019 10:07:54 AM Intra-Procedure 12/09/2019 Erik Curry 10:08:38 AM José Antonio MCCLENDON Signatures Monitor : Isabella Vargas RT Signature : Date : Time : Performing Physician : Signature : Erik Lorenzo MD Date : Time : Nurse : Solange Hanson RN Signature : Date : Time : [facility] [address] [place] [address]
[~2019-12-09 07:03] MED LIST: BAYER CHEWABLE81 MG PO; BICALUTAMIDE; CRESTOR20 MG PO; LISINOPRIL10 MG PO; PLAVIX75 MG PO; [UNRECOGNIZED DRUG - OTHER]
[2019-12-09 08:07] VITALS: BP 147/78; Ht 180.3 cm; Wt 124.2 kg
[2019-12-09 08:27] LABS: EOSINOPHILS 5.4 % (0-7); HEMATOCRIT 37.6 % (42.0-54.0); HEMOGLOBIN 12.6 g/dL (13.5-17.5); IMMATURE GRANULOCYTES 0.3 % (0-5); LYMPHOCYTES 17.2 % (15-50); MCH 31.7 pg (26.0-34.0); MCHC 33.5 g/dL (31.0-37.0); MCV 94.5 fL (80.0-100.0); MEAN PLATELET VOLUME 12.5 fL (7.4-10.4); MONOCYTES 6.2 % (2-11); NEUTROPHILS 69.9 % (40-80); RBC 3.98 10x6/uL (4.20-6.10); RDW 13.6 % (11.5-14.5); WBC 6.8 10x3/uL (4.8-10.8)
[2019-12-09 08:28] LABS: CALCIUM 9.3 mg/dL (8.5-10.1); CARBON DIOXIDE 27.2 mmol/L (21.0-32.0); CREATININE - SERUM 1.4 mg/dL (0.6-1.3); PLATELET COUNT 153 10x3/uL (130-400); POTASSIUM - SERUM 4.2 mmol/L (3.5-5.1)
--- NOTE | 2019-12-09 10:15 | NUR ---
PT RECEIVED VIA STRETCHER BACK TO ROOM FROM SPINNING MACHINE OPERATOR FOR RECOVERY. PT AWAKE, SLIGHTY DROWSY. PT DENIES PAIN OR DISCOMFORT AT THIS TIME. IV PATENT INFUSING VIA L ARM PER ORDERS. L GROIN W 6FR EXOCELE, SOFT, NO S/S HEMATOMA OR BLEEDING. DRESSING CDI. LEG PINK AND WARM, PEDAL PULSES PALPABLE. PT INSTRUCTED TO KEEP HEAD ON PILLOW AND LEG STRAIGHT, HE VERBALIZED UNDERSTANDING. PT PLACED ON CARDIAC MONITORS AND O2 VIA NC AT 2L. HR NSR RATE 62, BP 141/71, RR 19, SAT 98. CALL LIGHT IN REACH, AT BS
--- NOTE | 2019-12-09 10:45 | NUR ---
PT RESTING COMFORTALBY, L GROIN SOFT, DRESSING CDI NO S/S HEMATOMA OR BLEEDING NOTED. CALL LIGHT IN REACH
--- NOTE | 2019-12-09 11:30 | NUR ---
L GROIN SOFT, DRESSING CDI NO S/S HEMATOMA OR BLEEDING. PT DENIES PAIN OR NEEDS AT THIS TIME. VSS. CALL LIGHT IN REACH
--- NOTE | 2019-12-09 12:00 | NUR ---
L GROIN SOFT, DRESSING CDI NO S/S HEMATOMA OR BLEEDING. VSS. AT BS, CALL LIGHT IN REACH
--- NOTE | 2019-12-09 13:00 | NUR ---
L GROIN SOFT, DRESSING REMAINS CDI NO S/S HEMATOMA OR BLEEDING. HOB ELEVATED SLIGHTLY. SANDWICH AND SODA SERVED. PT DENIES PAIN OR NEEDS AT THIS TIME. VSS.
--- NOTE | 2019-12-09 13:44 | NUR ---
PT DOING WELL, TOLERATED LUNCH W/O DIFFICULITIES. L GROIN SOFT DRESSING CDI, NO S/S HEMATOMA OR BLEEDING NOTED. DISCHARGE INSTRUCTIONS REVIEWED W PT AND , BOTH VERBALIZED UNDERSTANDING.
--- NOTE | 2019-12-09 13:48 | NUR ---
IV REMOVED W CATH INTACT, MONITORS REMOVED AND PT UP TO DRESS FOR DISCHARGE W ASSIST FROM
--- NOTE | 2019-12-09 14:00 | NUR ---
PT TO BR VIA WC, VOIDING W/O DIFFICULITY. PT THEN DISCHARGED TO WAITING IN PRIVATE VEHICLE VIA WC. PT HAD ALL BELONGINGS AND DISCHARGE INFORMATION
--- NOTE | 2019-12-11 11:30 | OP ---
PATIENT NAME: JASPAL SANTOS MEDICAL RECORD: [id number] :48 LOCATION:D.CAT ADMISSION DATE: SURGEON: DESTINY BYRNE MD DATE OF OPERATION: 12/09/2019 PROCEDURE: Stent to circumflex. DESCRIPTION OF PROCEDURE: After a 6-Dutch sheath placed in the left femoral artery, a XB LAD guide catheter provided excellent guide catheter support. Initial pictures confirmed the previously described 80% mid circumflex stenosis. Next, a 300 cm Whisper wire was placed across the 80% stenosis circumflex down this portion of vessel. Stent deployed was a 3.5 x 12 Bud drug-eluting stent up to 14 atmospheres. Final angiography shows excellent resolution of 80% stenosis, no significant residual. SAVANA flow was 3 throughout the procedure. The patient was previously on Plavix. Heparin was used during the case. Sheath was closed with ExoSeal device. TRANSINT:[id number] Voice Confirmation ID: [id number] DOCUMENT ID: [id number] DESTINY BYRNE MD at 1130 CC: [id number] DICTATION DATE: 12/09/19 1001 TEACHER PRIVATE: 12/09/19 2216 [facility] 12/09/19 [facility] [address] [place] [address]
--- NOTE | 2019-12-11 11:30 | HP ---
PATIENT: JASPAL SANTOS MEDICAL RECORD: [id number] ACCOUNT: [id number] LOCATION:[place] : 48 ADMISSION DATE: 12/09/19 PCP: NAYELI CUMMINS MD HISTORY AND PHYSICAL EXAMINATION HISTORY OF PRESENT ILLNESS: A 69-year-old gentleman with history of coronary artery disease, status post recent intervention to the PDA, is being brought back for intervention of the circumflex. He has continued to have angina since his previous admission. He is being admitted for intervention to the [facility]. PAST MEDICAL HISTORY: Includes; 1. History of hypertension. 2. Coronary artery disease as described above. 3. Dyslipidemia. ALLERGIES: None known. PHYSICAL EXAMINATION: GENERAL: Pleasant, in no acute distress, appears stated age. HEENT: Normocephalic, atraumatic. NECK: No JVD or bruit. HEART: Regular. LUNGS: Menjivar clear. ABDOMEN: Soft, nontender. EXTREMITIES: Pulse 2+. No edema. IMPRESSION: Continued angina. PLAN: Revascularization of the OM in the near future. TRANSINT:[id number] Voice Confirmation ID: [id number] DOCUMENT ID: [id number] DESTINY BYRNE MD at 1130 CC: [id number] DICTATION DATE: 12/08/19 1459 PURCHASING MANAGER: 12/08/19 1534 [facility] 12/09/19 [address] [place] [address]
== END 2019-12-09 14:00 | disposition home or self-care (01) ==
LOC: D.CATH 07:03 → EDSTATUS 09:00 → D.CATH 09:00
PROVIDERS: ATTEND Internal Medicine Interventional Cardiology
DX: I25.119 Atherosclerotic heart disease of native coronary artery with unspecified angina pectoris (principal); I10 Essential (primary) hypertension; E78.5 Hyperlipidemia, unspecified

== ENCOUNTER 2020-11-02 10:07 | Day surgery (SDC) | payer MEDICARE, BC ==
[~2020-11-02] VITALS: Ht 180.3 cm; Wt 125.0 kg
[2020-11-02 10:52] LABS: BASOPHILS 1.3 % (0-2); EOSINOPHILS 4.1 % (0-7); HEMATOCRIT 40.6 % (42.0-54.0); HEMOGLOBIN 13.5 g/dL (13.5-17.5); LYMPHOCYTES 18.9 % (15-50); MCHC 33.2 g/dL (31.0-37.0); MCV 93.1 fL (80.0-100.0); MEAN PLATELET VOLUME 10.6 fL (7.4-10.4); MONOCYTES 5.6 % (2-11); NEUTROPHILS 70.1 % (40-80); RBC 4.36 10x6/uL (4.20-6.10); RDW 14.4 % (11.5-14.5); WBC 7.2 10x3/uL (4.8-10.8)
[2020-11-02 11:03] LABS: ANION GAP 11.8 mmol/L (8-16); CALCIUM 8.6 mg/dL (8.5-10.1); CARBON DIOXIDE 27.5 mmol/L (21.0-32.0); CREATININE - SERUM 1.3 mg/dL (0.6-1.3); PLATELET COUNT 214 10x3/uL (130-400); POTASSIUM - SERUM 4.3 mmol/L (3.5-5.1)
[2020-11-02 11:51] VITALS: BP 144/89; Ht 180.3 cm; Wt 125.0 kg
--- NOTE | 2020-11-02 15:58 | NUR ---
1545 IV REMOVED AND PRESSURE HELD, CATHETER INTACT. INSTRUCTIONS GIVEN.
--- NOTE | 2020-11-02 16:27 | NUR ---
1545 IV REMOVED AND PRESSURE HELD. INSTRUCTIONS GIVEN
--- NOTE | 2020-11-03 13:22 | OP ---
PATIENT NAME: JASPAL SANTOS MEDICAL RECORD: [id number] :48 LOCATION:D.OPS ADMISSION DATE: SURGEON: BABS SILVERIO MD DATE OF OPERATION: 11/02/2020 PREOPERATIVE DIAGNOSIS: Multiple colon polyps. POSTOPERATIVE DIAGNOSIS: Multiple colon polyps. The only remaining polyp that I could identify was an ascending colon polyp. PROCEDURE: 1. Total colonoscopy to cecum. 2. Hot biopsy forceps polypectomy x1. SURGEON: Babs Silverio MD INDUST[employer]CIAL GROUNDSKEEPER: None. BLOOD LOSS: Minimal. ANESTHESIA: IV sedation. COMPLICATIONS: None. DESCRIPTION OF PROCEDURE: The patient was conveyed to the endoscopy suite electively on 11/02/2020. IV sedation was induced by the anesthesia staff. Digital rectal examination was performed. Post-prostatectomy changes were noted. Colonoscope was inserted through the anus. It was easily advanced to the cecum. The prep was marginal. I irrigated in the cecum and examined it carefully. I was able to identify one stellate scar, but identified no polypoid tissue. I continued to withdraw the endoscope. A combination of normal imaging and narrow band imaging was utilized. One polyp was noted. This was a 5-mm sessile polyp on the back of a fold and this was removed utilizing hot biopsy forceps polypectomy technique. I then continued to withdraw the endoscope. The pullback was greater than a 16-minute pullback. I dragged the folds. A combination of normal imaging and narrow band imaging were utilized. A retroflexed view was obtained in the rectum. I then unretroflexed the scope and removed under direct vision. I will see the patient in my office in 2 to 3 weeks. I plan for his next colonoscopy to take place in 3 years. TRANSINT:[id number] Voice Confirmation ID: [id number] DOCUMENT ID: [id number] BABS SILVERIO MD at 1322 CC: NEL TERRAZAS MD and NAYELI CUMMINS [id number] DICTATION DATE: 11/02/20 1517 EXECUTOR OF ESTATE: 11/02/20 1727 [facility] 11/02/20 [facility] [address] [place] [address]
== END 2020-11-02 16:29 | disposition home or self-care (01) ==
LOC: D.OPS 10:07
PROVIDERS: Anesthesiology; ATTEND Surgery
DX: K63.5 Polyp of colon (principal); E78.5 Hyperlipidemia, unspecified; I10 Essential (primary) hypertension